=== PATIENT | male | born 1975 | race Caucasian/White ===

== ENCOUNTER 2022-06-24 08:36 | Outpatient (CLI) | payer BC, SELFPAY ==
--- NOTE | 2022-06-24 08:41 | ECHO_ITS ---
Patient Info Name: Bogdan Wheatley Age: 46 years : 1975 Gender: Male Ht: 74 in Wt: 210 lbs BSA: 2.24 m2 HR: 53 bpm BP: 142 / 80 mmHg Technical Quality: Good Exam Date: 06/24/2022 9:03 AM Exam Location: [facility] Patient Status: Outpatient Admit Date: 06/24/2022 Staff Ordering Physician: Maria Luz Melendez MD Investigator Cash Shortage: Elan Morgan, DARINEL, RT Attending Provider: Maria Luz Melendez MD Exam Type: CA echo doppler color flow Study Info Indications R00.1 - Bradycardia, unspecified Complete two-dimensional, color flow and Doppler transthoracic echocardiogram is performed. Strain analysis performed. Summary 1. Complete two-dimensional, color flow and Doppler transthoracic echocardiogram is performed. 2. Left ventricular chamber dimension is normal. 3. Left ventricular systolic function is normal, estimated at 55-60%. 4. The left ventricular diastolic function is normal. 5. E/e' 4 is not elevated. 6. Global longitudinal strain is abnormal at -15.9%. 7. Left atrial chamber dimension is mildly enlarged. 8. Right atrial chamber dimension is moderately enlarged. 9. There is mild aortic valve regurgitation. 10. There is mild mitral valve regurgitation. 11. There is trace tricuspid valve regurgitation. 12. Dilated inferior vena cava with >50% collapse upon inspiration consistent with elevated right atrial pressure, 10 mmHg. Left Ventricle E/e' 4 is not elevated. Global longitudinal strain is abnormal at -15.9%. Left ventricular chamber dimension is normal. Left ventricular systolic function is normal, estimated at 55-60%. The left ventricular diastolic function is normal. Right Ventricle Right ventricular systolic function is normal and with normal TAPSE 3.0 cm. Right ventricular chamber dimension is normal. Left Atria Left atrial chamber dimension is mildly enlarged. Right Atria Right atrial chamber dimension is moderately enlarged. Aortic Valve The aortic valve is trileaflet. There is no aortic valve stenosis. There is mild aortic valve regurgitation. Pulmonic Valve There is no pulmonic regurgitation. Mitral Valve There is no mitral valve stenosis. There is mild mitral valve regurgitation. Tricuspid Valve RVSP is not calculated due to an inadequate TR jet. There is trace tricuspid valve regurgitation. Pericardium/Pleural There is no pericardial effusion. Inferior Vena Cava Dilated inferior vena cava with >50% collapse upon inspiration consistent with elevated right atrial pressure, 10 mmHg. Aorta The aortic root size at the sinus of Valsalva is normal. Left Ventricular Outflow Tract Name Value Normal LVOT 2D LVOT Diameter 2.2 cm LVOT Doppler LVOT Peak Gradient 3 mmHg LVOT Mean Gradient 2 mmHg LVOT VTI 21 cm LVOT VTI/AV VTI Ratio 0.8 LVOT Stroke Volume 82 ml LVOT CO 4.4 l/min LVOT CI 1.9 l/min/m2 Mitral Valve
== END 2022-06-24 08:37 | disposition home or self-care (01) ==
PROVIDERS: PCP Family Medicine; Visit Provider Family Medicine
DX: R00.1 Bradycardia, unspecified (principal); Z82.79 Family history of other congenital malformations, deformations and chromosomal abnormalities; I51.7 Cardiomegaly; R93.1 Abnormal findings on diagnostic imaging of heart and coronary circulation
CPT/HCPCS: 93306

== ENCOUNTER 2023-07-14 00:06 | Day surgery (SDC) | payer BC, SELFPAY ==
[2023-07-04 10:47] VITALS: BMI 26.3
[2023-07-14 07:55] VITALS: BP 118/78; PULSE 50; RESP 18; TEMP 36.2; O2SAT 100
[2023-07-14] MEDS: LACTATED RINGERS 1,000 ML 150 ML IV CONT (08:00)
--- NOTE | 2023-07-14 08:43 | PM.HPGS ---
History of Present Illness History of Present Illness Consent: Risks, benefits, and alternatives have been discussed and questions answered. Patient agrees to proceed with procedure. Chief complaint: colon cancer screening Narrative: Bogdan Wheatley is a 48 year old male here for screening colonoscopy, had one in 2018 when was having digestive issues Review of Systems Constitutional: Constitutional: Denies headache(s) and Denies weakness Eyes: Eyes: Denies blurry vision ENT: Reports Normal hearing present, Denies headache(s) and Denies neck pain Cardiovascular: Cardiovascular: Denies chest pain and Denies dyspnea Respiratory: Respiratory: Denies dyspnea Gastrointestinal: Gastrointestinal: Reports no additional gastrointestinal complaints Genitourinary: Genitourinary: Denies dysuria Musculoskeletal: Musculoskeletal: Denies neck pain Integumentary/Breasts: Skin/Breast: Denies dry skin Neurologic: Reports Normal hearing present, Denies headache(s) and Denies weakness Psychiatric: Psychiatric: Denies anxiety Endocrine: Endocrine: Denies change in body appearance Hematologic/Lymphatic: Hematologic/Lymphatic: Denies easy bleeding Allergic/Immunologic: Allergic/Immunologic: Denies urticaria PMFSH Past Medical History Medical History (Updated 07/14/23 @ 08:44 by Sergio Grimes MD) Acne Colon cancer screening Cut of calf (~02/2023) Family history of bicuspid aortic valve Family history of colon cancer History of chicken pox History of Holter monitoring 08/2001 - PVC's History of stress test 09/2001 - NORMAL Hx of dislocation of shoulder Right - 1996 Surgical History Surgical History History of surgical procedure on eye proper using laser (~01/2023) b/l [place] teeth extracted 1992 Family History Family History Father Family history of glaucoma Hypertension Grandparent Carcinoma of colon Family history of malignant neoplasm of cervix Family history of malignant neoplasm of kidney Social History Social History Smoking status: Never smoker Second hand tobacco smoke exposure: No Alcohol intake: never Alcohol use details: consumes 1 beer a month Substance use: never Substance use type: does not use Lack of Transportation: No Lack of Food: Never True Current Housing: I Have Housing Concerned About Future Housing: No Difficulty Paying Gas/Electric Bills: No Difficulty Paying for Meds: No Currently Unemployed: No Education: Master's Degree or Higher Difficulty w/ Childcare or Family Care: No Living arrangements: with family Additional living arrangements comments: and two children Occupation/Education: occupation Gender identity (if verbalized by the patient): Male Sexual Orientation (if Verbalized by the Patient): Straight or Heterosexual Spiritual care concerns: No Agree to blood products: Yes Meds Home Medications and Allergies Home Medications Medication Instructions Recorded Confirmed Type multivitamin 1 tablet PO DAILY 10/16/19 07/04/23 History omega-3 fatty acids 1,000 mg 1,000 mg PO DAILY 10/16/19 07/04/23 History capsule (Fish Oil Concentrate) ascorbic acid (vitamin C) 1,000 mg 1 g PO DAILY 03/17/21 07/04/23 History tablet Saccharomyces boulardii 250 mg 5,000 mmu cells PO DAILY 06/08/22 07/04/23 History capsule (Daily Probiotic (S. boulardii)) cholecalciferol (vitamin D3) 50 50 mcg PO DAILY 06/08/22 07/04/23 History mcg (2,000 unit) tablet vitamin B complex (B 1 tablet PO DAILY 06/08/22 07/04/23 History Complex-Vitamin B12 tablet) Allergies Allergy/AdvReac Type Severity Reaction Status Date / Time NKDA Allergy Mild Unknown Uncoded 07/14/23 07:52 Vital Signs Vital Signs - 24 hr 07/14/23 07:55 Temperature
--- NOTE | 2023-07-14 08:45 | WPDANESEPPF ---
Anes - Initial Pre Proc Eval Procedure: Operation Date: 07/14/23 09:00 Proposed Procedures p Colonoscopy - Sergio Grimes MD Date/Time: 07/14/23 08:45 Surgeon: Sergio Grimes MD Pre Op Diagnosis: colon cancer screening Patient Data Age: 48 Gender: M Height: 1.88 m Weight: 90.7 kg Last Vital Signs Temp 36.2 C L 07/14/23 07:55 Pulse 50 L 07/14/23 07:55 Resp 18 07/14/23 07:55 BP 118/78 07/14/23 07:55 Pulse Ox 100 07/14/23 07:55 O2 Del Method Room Air 07/14/23 07:55 Allergies Allergy/AdvReac Type Severity Reaction Status Date / Time NKDA Allergy Mild Unknown Uncoded 07/14/23 07:52 Home Medications Medication Instructions Recorded Confirmed Type multivitamin 1 tablet PO DAILY 10/16/19 07/04/23 History omega-3 fatty acids 1,000 mg 1,000 mg PO DAILY 10/16/19 07/04/23 History capsule (Fish Oil Concentrate) ascorbic acid (vitamin C) 1,000 mg 1 g PO DAILY 03/17/21 07/04/23 History tablet Saccharomyces boulardii 250 mg 5,000 mmu cells PO DAILY 06/08/22 07/04/23 History capsule (Daily Probiotic (S. boulardii)) cholecalciferol (vitamin D3) 50 50 mcg PO DAILY 06/08/22 07/04/23 History mcg (2,000 unit) tablet vitamin B complex (B 1 tablet PO DAILY 06/08/22 07/04/23 History Complex-Vitamin B12 tablet) Patient hx anesthesia problems: none Family hx anesthesia problems: none Results Review: All pre-operative results and documents have been reviewed as part of the pre-operative evaluation. [facility] Past Medical History Medical History (Updated 07/14/23 @ 08:44 by Sergio Grimes MD) Acne Colon cancer screening Cut of calf (~02/2023) Family history of bicuspid aortic valve Family history of colon cancer History of chicken pox History of Holter monitoring 08/2001 - PVC's History of stress test 09/2001 - NORMAL Hx of dislocation of shoulder Right - 1996 Surgical History Surgical History History of surgical procedure on eye proper using laser (~01/2023) b/l [place] teeth extracted 1992 Family History Family History Father Family history of glaucoma Hypertension Grandparent Carcinoma of colon Family history of malignant neoplasm of cervix Family history of malignant neoplasm of kidney Social History Social History Smoking status: Never smoker Second hand tobacco smoke exposure: No Alcohol intake: never Alcohol use details: consumes 1 beer a month Substance use: never Substance use type: does not use Lack of Transportation: No Lack of Food: Never True Current Housing: I Have Housing Concerned About Future Housing: No Difficulty Paying Gas/Electric Bills: No Difficulty Paying for Meds: No Currently Unemployed: No Education: Master's Degree or Higher Difficulty w/ Childcare or Family Care: No Living arrangements: with family Additional living arrangements comments: and two children Occupation/Education: occupation Gender identity (if verbalized by the patient): Male Sexual Orientation (if Verbalized by the Patient): Straight or Heterosexual Spiritual care concerns: No Agree to blood products: Yes Anes - Eval Final PreProcedure Day of Procedure 07/14/23 08:45 Patient weight: overweight Heart: regular rate and rhythm Lungs: clear to auscultation Airway: Mallampati scale class II Neurological: alert and oriented Last oral intake: >/= 8 hours ASA classification: II Emergent: no Anesthetic plan: proceed Anesthesia type and monitoring: general GIVS and standard monitoring Results Review: All pre-operative results and documents have been reviewed as part of the pre-operative evaluation. Informed Consent: The patient's anesthetic plan and its attendant risks and benefits were discussed
[2023-07-14 09:08] VITALS: BP 106/69; PULSE 66; RESP 15; O2SAT 100
[2023-07-14 09:18] VITALS: BP 106/72; PULSE 57; RESP 14; O2SAT 99
[2023-07-14 09:28] VITALS: BP 105/76; PULSE 70; RESP 16; O2SAT 98
== END 2023-07-14 09:31 | disposition home or self-care (01) ==
PROVIDERS: PCP Family Medicine; Visit Provider Internal Medicine Gastroenterology
PROC: 0DJD8ZZ Inspection of Lower Intestinal Tract, Via Natural or Artificial Opening Endoscopic (ICD-10-PCS; CPT 45378; principal; 2023-07-14 09:00)
DX: Z12.11 Encounter for screening for malignant neoplasm of colon (principal); K64.8 Other hemorrhoids; Z80.0 Family history of malignant neoplasm of digestive organs
CPT/HCPCS: 45378; J2704; J7120

== ENCOUNTER 2024-06-21 14:16 | Outpatient (CLI) | payer BC, SELFPAY ==
--- NOTE | ~2024-06-21 | US_ITS ---
EXAMINATION: US soft tissue head and neck DATE: 06/21/2024 14:31 INDICATION: Left neck lump. Localized edema. TECHNIQUE: Multiple grayscale and Doppler ultrasound images of the head and neck were obtained. COMPARISON: None FINDINGS: There is no abnormal mass or lymphadenopathy in the patient's area of concern in left neck. IMPRESSION: 1. No abnormal mass or lymphadenopathy in the patient's area of concern in left neck. Reviewed, dictated and finalized at location A.
== END 2024-06-21 14:17 ==
LOC: GOSHIMG 14:17
PROVIDERS: PCP Family Medicine; Visit Provider Family Medicine
DX: R60.0 Localized edema (principal)
CPT/HCPCS: 76536